=== PATIENT | female | born 1990 | race Caucasian/White ===

== ENCOUNTER 2024-04-02 07:34 | Inpatient (IN) | payer SELFPAY, OTHER ==
[2024-04-02] VITALS (27 sets, daily range): BP systolic 115–147; BP diastolic 61–92; PULSE 75–97; RESP 16–17; TEMP 36.3–36.8; O2SAT 98–100; BMI 37.3
--- NOTE | 2024-04-02 07:41 | PCM.HP.OB ---
HPI - General General Date of Admission: 04/02/24 HPI Narrative FLACA NOLASCO, is a 33 F who presents [facility] 03/26/24 for induction of labor due to post dates at 41w0d. Maternal Data Information [facility]ACKIE Calculator Estimated Delivery Date Method Current WG Current Estimate 03/26/24 Manual 41w 0d PFSH PFSH Medical History (Updated 04/02/24 @ 08:29 by Montse Kirkland) Family history of hearing loss at age younger than 7 years Home Medications ?Medication ?Instructions ?Recorded ?Last Taken ?Type multivitamin,xn-pkhb-ifqwfhor 27 1 tab PO DAILY 02/10/15 Unknown History mg-0.4 mg tablet (Therems-M) naproxen 250 mg tablet 250 - 500 mg (1 - 2 x 250 mg) PO 03/05/17 Unknown Rx Q8H PRN PRN MILD PAIN ##30 vit no.95-ferrous 1 tab PO DAILY 04/02/24 Unknown History fumarate 28 mg-folic acid 800 mcg tablet () Allergy/AdvReac Type Severity Reaction Status Date / Time Penicillins (PCN) Allergy Rash Verified 04/02/24 07:36 Surgical History (Updated 04/02/24 @ 08:29 by Montse Kirkland) History of surgery Social History Smoking Status: Never smoker History Elective abortions Hx Para 3 Spontaneous abortions Hx # Term Pregnancies Ectopic pregnancies Hx # Pregnancies Multiple births # of living children NST FHR Rate Baby A Baseline: 135 Variability:: Moderate Accelerations:: 15 x 15 Decelerations:: Variable FHR Category:: Category II Uterine Activity:: Irregular ROS Constitutional Constitutional: Reports systems reviewed and no addt'l complaints, except as documented; Denies headache(s) Eyes Eyes: Denies acute decrease in peripheral vision, blurry vision or change in vision ENT HEENT: Reports systems reviewed and no addt'l complaints, except as documented Cardiovascular Cardiovascular: Denies chest pain or dizziness Respiratory/Chest Respiratory/Chest: Denies cough, dyspnea, dyspnea on exertion, shortness of breath at rest or shortness of breath with exertion Gastrointestinal Gastrointestinal: Denies abdominal pain, diarrhea, nausea or vomiting Genitourinary Genitourinary: Denies abdominal discomfort Musculoskeletal Musculoskeletal: Denies limited range of motion Integumentary Integumentary: Reports systems reviewed and no addt'l complaints, except as documented Neurologic Neurologic: Reports systems reviewed and no addt'l complaints, except as documented Psychiatric Psychiatric: Reports systems reviewed and no addt'l complaints, except as documented Endocrine Endocrinology: Reports systems reviewed and no addt'l complaints, except as documented Hematologic/Lymphatic Hematologic/Lymphatic: Reports systems reviewed and no addt'l complaints, except as documented Allergic/Immunologic Allergic/Immunologic: Reports systems reviewed and no addt'l complaints, except as documented Vital Signs Vital Signs Vital Signs: 04/02/24 07:37 04/02/24 07:37 Pulse Rate 81 Blood Pressure 134/85 H BP Systolic 134 BP Diastolic 85 Weight Weight: 191 lb Body Mass Index (BMI) 37.3 Physical Exam Const alert and oriented x3 General Appearance: cooperative Orientation / Consciousness: awake, oriented to person, oriented to place and oriented to time Exam Limitations: no limitations HEENT normocephalic Head and Scalp: normal to inspection, normocephalic and atraumatic Face and Sinus: normal facial exam Eyes General Eye: normal appearance of both eyes Neck full ROM Chest Chest: symmetrical chest wall rise Resp normal respiratory effort and normal air movement Auscultation: clear to auscultation bilaterally Cardio regular rate, regular rhythm, S1 normal heart sound, S2 normal heart sound, no murmurs, no rub, no gallops and no clicks GI normal to inspection, nondistended, normoactive bowel sounds and non-tender appearance of the vagina normal Bladder / Kidney Exam: no CVA tenderness Manual OB Exam: estimated gestational size appropriate, presentation cephalic, dilated 1cm and advanced to 3cm with insertion of mcfarlane and BBOW and mcfarlane expelled, effaced 70% and station -3 Back/Spine normal ROM Extremity normal to inspection and full ROM Skin no rashes or lesions noted Neuro oriented x3, CN's II-XII intact bilaterally and moves all extremities Sensorium / Orientation: awake, alert and oriented to person Motor Exam: clonus absent Deep Tendon Reflexes: Rt Patellar (L4): 2+ and Lt Patellar (L4): 2+ Labs Labs Labs: Blood Type O NEGATIVE Antibody Screen NEGATIVE Hct 38.9 % (37-47) Hgb 12.6 g/dL (12.0-15.0) Syphilis Total Ab Pending Rhogam given: Yes GBS negative RPR negative O negative, antibody screen negative Rubella immune HBsAG negative HepC negative HIV nonreactive GC/CT negatvie 1hr GCT negative Assessment & Plan (1) 41 weeks gestation of : (2) Encounter for induction of labor: (3) Rh negative status during : PLAN: Plan 1) Admit to labor and delivery 2) Routine labs 3) IV pain meds or nitrous for pain management 4) Mcfarlane for cervical ripening but advance of dilation with insertion and expelled. Pitocin for management. 5) collaborative physician, updated on patient status, above assessment and plan.
[2024-04-02] MEDS: Lactated Ringers 1,000 ML 50 ML IV (07:53)
[2024-04-02 08:18] LABS: Absolute Lymphocyte Count 2.83 X10^3/uL (0.83-4.51); Absolute Neutrophil Count 8.6 X10^3/uL (2.0-7.7); Basophil# 0.04 X10^3/uL; Basophil% 0.3 % (0-1); Eosinophil# 0.19 X10^3/uL; Eosinophils% 1.5 % (0-5); Hematocrit 38.9 % (37-47); Hemoglobin 12.6 g/dL (12.0-15.0); Lymphocyte # 2.83 X10^3/ul (0.83-4.51); Lymphocyte % 22.3 % (19-41); Mean Corp Hgb Conc 32.4 g/dL (32-36); Mean Corpuscular Volume 95.8 fL (81-99); Mean Platelet Vol. 11.4 fl (6.2-12.0); Monocyte# 0.98 X10^3/uL; Monocyte% 7.7 % (0-10); NRBC Flagged by Analyzer 0 % (0-5); Neutrophil # 8.59 X10^3/uL (2.7-7.7); Neutrophil % 67.6 % (47-70); Platelet Count 273 K/mm3 (150-450); RBC Distribution Width CV 14.6 % (11.6-14.6); RBC Distribution Width SD 51.2 fl (35.1-43.9); Red Blood Count 4.06 M/mm3 (4.2-5.4); White Blood Count 12.7 K/mm3 (4.4-11.0)
[2024-04-02] MEDS: 0.9% Normal Saline Single 100 ML IV.SOLN. INTRA-UTER (08:22)
[2024-04-02] MEDS: Oxytocin 15 Units/NS 250ml 15 UNITS/250 ML IV.SOLN 2 UNITS IV (08:22)
[2024-04-02 09:24] LABS: Syphilis Antibodies Non-reactive
--- NOTE | 2024-04-02 12:32 | EX.PCM.OBRPT ---
Assessment & Plan (1) Vaginal delivery: Maternal Data Information JACKIE Calculator Estimated Delivery Date Method Current WG Current Estimate 03/26/24 Manual 41w 0d Vaginal Delivery Maternal Presentation Maternal Presentation: Medically Indicated Induction (41 weeks, post dates) Type of Induction: Pitocin Medical Reason for Induction: Post term Operative Information Date of Procedure: 04/02/24 Pre-Operative Diagnosis: 41 weeks, Post dates Post-Operative Diagnosis: Surgery / Procedure Performed: Spontaneous Vaginal Delivery Type of Anesthesia: None Estimated Blood Loss: 200ml Time of Delivery: 12:17 Findings Description of Procedure: Progressed to complete with urge to push. Nitrous for pain management. of viable female over intact perineum. APGARS 8,9 respectively. Infant head delivered with body immediately forthcoming. CANx1, tight, delivered through and reduced after delivery. Placed on maternal abdomen, strong cry. Mouth and nares suctioned for secretions. Pitocin started for active 3rd stage management. Cord doubly clamped and cut by FOB after pulsations ceased, delayed cord clamping. Placenta delivered intact via lozano, 3 vessel cord intact. Perineum inspected and revealed intact. Fundus firm and hemostasis achieved. EBL 200ml. Mom and baby stable, planning to breastfeed. Family bonding well. notified of delivery. Presentation: Vertex and MARAH Amniotic Membrane Rupture Type: Spontaneous Amniotic Fluid Description: Clear Placental Delivery Description: Spontaneous Placenta Disposition: [facility] Cord Vessel Description: 3 Vessels Cord Entanglement: Around neck x 1, tight Nuchal Cord Compression: Without compression Infant A Gender: Female (1 minute): 8 (5 minute): 9 Delayed Cord Clamping: Yes Post Vaginal Delivery Medications Given After Delivery: IV Pitocin Episiotomy Description: None Laceration: None Complication Complications: None
[2024-04-02] MEDS: Oxytocin 15 Units/NS 250ml 15 UNITS/250 ML IV.SOLN 83 UNITS IV (12:53)
[2024-04-02] MEDS: Ibuprofen 600 MG Tablet PO (15:05)
[2024-04-03] VITALS (8 sets, daily range): BP systolic 124–141; BP diastolic 65–80; PULSE 70–87; RESP 16–17; TEMP 36.5–36.7; O2SAT 97–99
[2024-04-03] MEDS: Ibuprofen 600 MG Tablet PO ×2 (00:17→08:34)
[2024-04-03] MEDS: Rho(D) Immune Globulin 300 MCG (1500 Unit) Syringe IV (01:58)
[2024-04-03] MEDS: 0.9% Saline Lock 10 ML Syringe IV (02:00)
--- NOTE | 2024-04-03 08:48 | PCM.PN.OB ---
Subjective Subjective Doing well. Ambulating and voiding without difficulty. Breast feeding. Pain controlled Objective Data Objective Data Vital Signs: Vital Signs Temp Pulse Resp BP Pulse Ox O2 Del Method 97.7 F L 71 16 128/68 H 97 Room Air 04/03/24 08:38 04/03/24 08:41 04/03/24 08:38 04/03/24 08:41 04/03/24 08:38 04/03/24 08:38 Oxygen Delivery Method Room Air Weight: 86.636 kg Body Mass Index (BMI) 37.3 Intake & Output: Intake and Output for Last 24 Hours 04/01/24 04/02/24 04/03/24 23:59 23:59 23:59 Intake Total 668.83 / 668.83 Output Total 700 / 700 Balance -31.17 / -31.17 Lab / Micro Data 04/02/24 07:53 Labs: Laboratory Results - last 24 hr 04/02/24 07:53: Syphilis Total Ab Non-reactive, Blood Type O NEGATIVE, Antibody Screen NEGATIVE 04/02/24 15:10: Screen NEGATIVE, Baby's Blood Type O POSITIVE, Baby's GREG NEGATIVE ROS Constitutional Constitutional: Denies fatigue, fever(s) or malaise Eyes Eyes: Denies change in vision ENT HEENT: Denies dizziness or headache(s) Respiratory/Chest Respiratory/Chest: Denies cough or dyspnea Gastrointestinal Gastrointestinal: Denies change in bowel habits Genitourinary Genitourinary: Denies burning urination or genital lesions Integumentary Integumentary: Denies rash Neurologic Neurologic: Denies confusion, dizziness, headache(s), numbness or weakness Physical Exam Const alert and no apparent distress Narrative: Fundus firm, below umbilicus. Assessment & Plan (1) Vaginal delivery:
--- NOTE | 2024-04-03 17:43 | PCM.DC.SUM ---
Providers Date of Admission: 04/02/24 Date of Discharge: 04/03/24 Primary Care Physician: Yelena Primary Care Phys Reason For Visit: VAGINAL DELIVERY Diagnosis Discharge Diagnosis (1) Vaginal delivery: Status: Acute Code(s): O80 - Encounter for full-term uncomplicated delivery Medications at Discharge Home Medications multivitamin,jq-ydea-rwpeucwl 27 mg-0.4 mg tablet (Therems-M) 1 tab PO DAILY 02/10/15 naproxen 250 mg tablet 250 - 500 mg (1 - 2 x 250 mg) PO Q8H PRN PRN MILD PAIN ##30 03/05/17 vit no.95-ferrous fumarate 28 mg-folic acid 800 mcg tablet () 1 tab PO DAILY 04/02/24 Hospital Course Operations None Procedures None Summary of Care Provided Minutes Spent on Discharge: 20 Hospital Course: Uncomplicated vaginal delivery. Breast feeding. Physical Exam Const alert and no apparent distress Narrative: Fundus firm, below umbilicus. Weight / BMI Weight Weight: 86.636 kg Body Mass Index (BMI) 37.3 ABG / Lab / Microbiology Data 04/02/24 07:53 D/C Instructions May resume sexual activity in: 6 weeks Please Follow Up With: Radha Chaudhry MD When: Follow up with our office in 1-2 and 6 weeks or as needed. [phone] Meaningful Use Info Meaningful Use Meaningful Use Diagnoses (Choose all that apply): None applicable Ischemic Stroke Statin Dosing Therapy Reference: STATIN DOSE THERAPY REFERENCE: * Patients > 75 years receive moderate or high dose statin therapy. * Patients 75 years or YOUNGER should receive HIGH intensity statin dose unless contraindicated. You will be required to document reason for non-treatment if statin daily dose does not meet guidelines. HIGH DOSE STATIN THERAPY DAILY Atorvastatin > than or = to 40 mg Rosuvastatin > than or = to 20 mg Amlodipine + Atorvastatin > than or = to 2.5/40 mg Ezetimibe + Simvastatin 10/80 mg Simvastatin 80mg Discharge Plan Admission Admit Date/Time: 04/02/24 07:34 Attending Provider: Malaika Hansen Primary Care Provider: Care Physician,No Primary Discharge Orders/Prescriptions Prescriptions: No Action multivitamin,zo-depf-iktraaqj [Therems-M] 1 TABLET tablet 1 tab PO DAILY naproxen 250 MG tablet 250 - 500 mg PO Q8H PRN PRN (Reason: MILD PAIN) Qty: 30 0RF PNV cmb#95-ferrous fumarate-FA [] 28 mg iron- 800 mcg tablet 1 tab PO DAILY Referrals / Follow Up: Care Physician,No Primary [Primary Care Provider] - Disposition Disposition (needs filled in before D/C Order can be placed): Home, Self Care
== END 2024-04-03 15:45 | disposition home or self-care (01) | DRG 807 ==
PROVIDERS: Obstetrics & Gynecology; Admitting Provider Advanced Practice Midwife; Visit Provider Advanced Practice Midwife
DX: O48.0 Post-term pregnancy (principal); Z37.0 Single live birth; O69.1XX0 Labor and delivery complicated by cord around neck, with compression, not applicable or unspecified; Z3A.41 41 weeks gestation of pregnancy
CPT/HCPCS: 59025; 59050; 85025; 85461; 86780; 86850; 86900; 86901; 90384; 99221; J7120; A4216; G0378; J2790; J2791